=== PATIENT | male | born 2000 | race Caucasian/White ===

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

== ENCOUNTER 2022-02-08 14:07 | Emergency (ER) | payer OTHER ==
[2022-02-08 14:25] VITALS: BP 115/75; PULSE 73; TEMP 98.6; BMI 22.4
[2022-02-08 16:07] LABS: BASO % 0.5 % (0-2.0); EOS % 1.8 % (0-4.5); HEMOGLOBIN 15.4 GM/dL (11.7-16.9); LYMPH % 30.3 % (8-40); MCH 28.8 pg (25.7-33.7); MCHC 34.1 g/dl (32.0-35.9); MEAN CELL VOLUME 84.3 fl (80-96); MEAN PLT VOLUME 6.4 fl (7.5-11.1); MONO % 6.5 % (3.8-10.2); NEUT % 60.9 % (42.8-82.8); PLATELET COUNT 320 10^3/uL (134-434); RBC 5.34 M/mm3 (4.00-5.60); RDW 13.5 % (11.9-15.9); WHITE BLOOD COUNT 6.7 K/mm3 (4.0-10.0)
[2022-02-08 16:47] LABS: CALCIUM 9.7 mg/dL (8.5-10.1)
[2022-02-08 16:48] LABS: BLOOD UREA NITROGEN 12.1 mg/dL (7-18)
[2022-02-08 16:51] LABS: CREATININE 0.9 mg/dL (0.55-1.3)
[2022-02-08 16:52] LABS: BILIRUBIN,TOTAL 1.7 mg/dL (0.2-1)
[2022-02-08 16:53] LABS: TOT PROT 8.6 g/dl (6.4-8.2)
== END 2022-02-08 18:06 | disposition home or self-care (01) ==
LOC: JERFT 14:07
DX: R20.2 Paresthesia of skin (principal)
CPT/HCPCS: 36415; 80053; 85025; 99283-25

== ENCOUNTER 2023-07-19 19:29 | Emergency (ER) | payer OTHER ==
[2023-07-19 19:32] VITALS: BMI 21.9
[2023-07-19 21:15] LABS: URINE APPEARANCE CLEAR; URINE BILIRUBIN NEGATIVE (NEGATIVE); URINE COLOR YELLOW; URINE GLUCOSE (UA) NEGATIVE (NEGATIVE); URINE KETONE 1+ (NEGATIVE); URINE LEUK ESTERASE NEGATIVE (NEGATIVE); URINE NITRITE NEGATIVE (NEGATIVE); URINE PROTEIN NEGATIVE (NEGATIVE); URINE UROBILINOGEN 0.2 mg/dL (0.2-1.0)
[2023-07-19 22:48] LABS: HIV INTERPRETATION NEGATIVE (NEGATIVE)
[2023-07-19] MEDS ORDERED: ACETAMINOPHEN 325 MG TABLET (FP) PO ONE (23:41)
[2023-07-19] MEDS ORDERED: ACETAMINOPHEN 325 MG TABLET (FP) ONE (23:42)
[2023-07-20 00:57] VITALS: TEMP 99.6
[2023-07-20 01:00] VITALS: BP 104/60; PULSE 90; RESP 16
== END 2023-07-20 01:35 | disposition home or self-care (01) ==
LOC: JER 19:29
DX: N50.812 Left testicular pain (principal); Z20.822 Contact with and (suspected) exposure to COVID-19
CPT/HCPCS: 0241U-QW; 36415; 76870-TC; 81003; 86695; 86696; 87389; 87491; 87591; 87661; 99284-25